=== PATIENT | male | born 1965 | race Caucasian/White ===

== ENCOUNTER 2016-12-02 17:12 | Emergency (ER) | payer OTHER ==
[~2016-12-02] VITALS: Ht 188 cm; Wt 105.6 kg
[2016-12-02] MEDS ORDERED: SODIUM CHLORIDE FLUSH 10ML SYR IVF ONE (17:30)
[2016-12-02 18:22] LABS: ASPARTATE AMINO TRANSFERASE 23 U/L (15-37); BLOOD UREA NITROGEN 15 mg/dL (7-18)
[2016-12-02] MEDS ORDERED: morphine SULFATE 10 MG/ML, 1ML IVPush ONE (18:30)
[2016-12-02] MEDS ORDERED: ONDANSETRON 2MG/ML, 2ML IVPush ONE (18:30)
[2016-12-02] MEDS ORDERED: SODIUM CHLORIDE 0.9% 1,000ML IVBOLUS ONE (18:30)
[2016-12-02 18:34] LABS: HEMATOCRIT 55.5 % (39.2-51.8)
[2016-12-02 18:35] LABS: DIFF TOTAL CELLS COUNTED 100 CELL DIFF
[2016-12-02 18:37] LABS: LARGE PLATELETS 1+; WHITE BLOOD COUNT 12.7 x10^3/uL (3.4-10)
[2016-12-02 18:39] LABS: VERIFY COUNTS? YES
[2016-12-02] MEDS ORDERED: OMNIPAQUE 350 MG/ML, 100ML BOTTLE ONE (19:00)
[2016-12-02] MEDS ORDERED: ONDANSETRON 2MG/ML, 2ML ONE (19:14)
[2016-12-02] MEDS ORDERED: MORPHINE SULFATE 4 MG/ML, 1ML ONE (19:14)
[2016-12-02 20:01] VITALS: BP 125/74
== END 2016-12-02 20:03 | disposition home or self-care (01) ==
LOC: ED 19:11
DX: K57.30 Diverticulosis of large intestine without perforation or abscess without bleeding (principal)
CPT/HCPCS: 36415; 74177; 80053; 81001; 83690; 85025; 96374; 96375; 99285; J2270; J2405; J7030; Q9967